=== PATIENT | female | born 1990 | race Caucasian/White ===

== ENCOUNTER → 2017-02-17 | Outpatient (CLI) | payer OTHER ==
[~2017-02-17] MED LIST: /DIVA50TA PO; ACET50TA PO; FOLI5CAP PO; IBUP80TA PO; LIVETAB PO; PRENTAB55 PO; TYLE325T5 PO
--- NOTE | 2017-02-17 17:28 | REP ---
Obstetric sonography: History: Supervision of for anatomy. Findings: Scanning through the gravid uterus demonstrates a viable single intrauterine gestation in a variable lie. motion is observed and heart rate is recorded at 147 beats per minute. An anterior grade 0 placenta is seen without evidence of previa or abruption. Amniotic fluid is subjectively normal. Closed cervical length viewed transabdominally measures 5.0 cm. No extrauterine abnormalities observed. Exam quality was inhibited by maternal body habitus. No anomaly is seen. cavum, face and profile, left and right ventricular outflow tract, and lower extremities are less than optimally seen due to position and maternal body habitus. The following additional anatomic structures are identified and felt to be sonographically unremarkable: cranium, choroid plexus, cerebellum and posterior fossa, lungs, four-chamber heart, diaphragm, left-sided stomach, abdominal wall cord insertion, three-vessel umbilical cord, kidneys and bladder, spine, upper extremities. Biometry chart: BPD 4.3 cm = 18 weeks 6 days HC 15.8 cm = 18 weeks 5 days AC 12.4 cm = 18 weeks 0 days HL 2.7 cm = 18 weeks 4 days FL 2.6 cm = 18 weeks 0 days HC/AC ratio 1.28 (1.07-1.26). Cephalic index normal 0.75. Estimated weight 223 grams 0 pounds 7 ounces 39th percentile for 18 weeks 2 days. Impression: Viable single intrauterine gestation at 18 weeks 2 days by today's composite criteria. ARISTIDES by today's sonography July 19, 2017. anatomic survey incomplete regarding face, ventricular outflow tracts, and lower extremities. Signed by Blair Wang MD 02/17/2017 05:30 P
== END ==
LOC: M SMT 14:34
PROVIDERS: ATTEND Specialist
DX: Z34.82 Encounter for supervision of other normal pregnancy, second trimester (principal); Z3A.18 18 weeks gestation of pregnancy; Z36.89 Encounter for other specified antenatal screening

== ENCOUNTER → 2017-03-10 | Outpatient (CLI) | payer OTHER ==
--- NOTE | 2017-03-10 15:35 | REP ---
Obstetric sonography: History: Supervision of followup anatomy. face, ventricular outflow tract, lower extremities. Findings: Scanning through the gravid uterus demonstrates a viable single intrauterine gestation in a breech lie. motion is observed and heart rate is recorded at 153 beats per minute. An anterior grade 0 placenta is seen without evidence of previa or abruption. Amniotic fluid is subjectively normal. Closed cervical length is 5.1 cm. No extrauterine abnormalities observed. There has been appropriate interval growth. Exam quality was inhibited by maternal body habitus. Abdominal wall cord insertion is not well seen today but it was visualized previously . The following additional anatomic structures are identified and felt to be sonographically unremarkable: cranium, choroid plexus, cavum, cerebellum and posterior fossa, face and profile, lungs, four-chamber heart with left and right ventricular cardiac outflow tract views, diaphragm, left-sided stomach, three-vessel cord, kidneys, bladder, spine, upper and lower extremities. Biometry chart: BPD 5.5 cm = 22 weeks 4 days Head circumference 20.0 cm = 22 weeks 1 day Abdominal circumference 16.1 cm = 21 weeks 1 day Femur length 3.8 cm = 22 weeks 1 day Humeral length 3.5 cm = 22 weeks 0 days Cerebellar diameter 2.1 cm = 20 weeks 1 day HC/AC ratio normal 1.24. Estimated weight 444 grams, 0 pounds 15 ounces, 61st percentile for 21 weeks 2 days. Impression: Viable single intrauterine gestation at 21 weeks 5 days by today's composite criteria. Expected gestational age estimate based on prior sonography is 21 weeks 2 days. ARISTIDES by prior sonography July 19, 2017. anatomic survey is considered to be complete in conjunction with the prior study. There is appropriate interval growth. Signed by Blair Wang MD 03/10/2017 04:09 P
== END ==
LOC: M SMT 13:39
PROVIDERS: ATTEND Obstetrics & Gynecology
DX: Z34.82 Encounter for supervision of other normal pregnancy, second trimester (principal); Z3A.21 21 weeks gestation of pregnancy

== ENCOUNTER → 2017-06-21 | Outpatient (REF) | payer OTHER | LOC: M LAB REF 16:59 | DX: Z36.85 Encounter for antenatal screening for Streptococcus B (principal); Z3A.00 Weeks of gestation of pregnancy not specified | CPT/HCPCS: 87081 ==

== ENCOUNTER 2017-06-27 19:23 | Outpatient (CLI) | payer OTHER | END 2017-06-27 20:35 | disposition home or self-care (01) | LOC: M LDO 19:23 | DX: O47.03 False labor before 37 completed weeks of gestation, third trimester (principal); Z3A.36 36 weeks gestation of pregnancy ==

== ENCOUNTER → 2018-05-17 | Outpatient (CLI) | payer OTHER ==
[~2018-05-17] MED LIST changes: -ACET50TA PO; +COLA100C5 PO; +IBUP-1114 PO; +KEPP1TAB PO; +LEVE250T5 PO; +MAPA500T2 PO
--- NOTE | 2018-05-17 20:12 | REP ---
Clinical: Anatomical evaluation. Comparison: None . Findings: Examination demonstrates a single live intrauterine in cephalic presentation. motion is identified by technologist. Placenta is noted anterior fundal and grade grade zero without evidence for placenta previa or abruption. Amniotic fluid volume is normal. Cervix measures 4.6 cm in length and appears closed. No evidence for nuchal cord. Gestational age by LMP 21 weeks 5 days with ARISTIDES 09/22/2018 . Gestational age by current measurements 21 weeks 4 days with ARISTIDES 09/23/2018 . FHR equals 153 beats per minute. BPD 5.1 cm 21 weeks 2 days HC 19.2 cm 21 weeks 3 days AC 16.4 cm 21 weeks 3 days FL 3.7 cm 21 weeks 5-day HL 3.57 cm 21 weeks 6 days HC/AC ratio 1.17 Estimated weight 431 grams ( 40th percentile). Anatomical assessment demonstrates normal structures including cranium, choroid plexus, lungs, diaphragm, stomach, cord insertion/three-vessel cord, kidneys/bladder, spine, and extremities. Limited evaluation of the cavum, posterior fossa, facial features, four-chamber heart and cardiac ventricular outflow tracts. Impression: 1. Single live intrauterine in cephalic presentation demonstrating appropriate interval growth. 2. Anatomical limitations as noted above warrant reevaluation and follow-up. No gross abnormality identified. Electronically Signed by Oscar Wolff MD 05/17/2018 08:03 P
== END ==
LOC: M RAD 11:13
PROVIDERS: ATTEND Advanced Practice Midwife
DX: O99.212 Obesity complicating pregnancy, second trimester (principal); Z3A.21 21 weeks gestation of pregnancy

== ENCOUNTER → 2018-06-15 | Outpatient (CLI) | payer OTHER, SELFPAY ==
--- NOTE | 2018-06-15 18:19 | REP ---
Clinical: Anatomical evaluation. Comparison: 05/17/2018 . Findings: Examination demonstrates a single live intrauterine in transverse (head to maternal left) presentation. motion is identified by technologist. Placenta is noted anterior and grade grade zero without evidence for placenta previa or abruption. Amniotic fluid volume is normal. Cervix measures 4.1 cm in length and appears closed. Placental yan is identified. Nuchal cord cannot be excluded. Gestational age by LMP 25 weeks 6 days with ARISTIDES 09/22/2018 . Gestational age by current measurements 25 weeks 3 day with ARISTIDES 09/25/2018 . FHR equals 150 beats per minute. Estimated weight 849 grams ( 39th percentile). Anatomical assessment demonstrates normal structures including cranium, choroid plexus, cavum, cerebellum/posterior fossa, facial features, lungs, four-chamber heart/ventricular outflow tracts, diaphragm, stomach, cord insertion/three-vessel cord, kidneys/bladder, and extremities. Impression: 1. Single live intrauterine in transverse lie demonstrating appropriate interval growth. 2. Placental yan noted. 3. Nuchal cord cannot be excluded. 4. In conjunction with prior examination anatomical assessment is complete and normal. Electronically Signed by Oscar Wolff MD 06/15/2018 06:10 P
== END ==
LOC: M RAD 08:53
PROVIDERS: ATTEND Advanced Practice Midwife
DX: Z34.82 Encounter for supervision of other normal pregnancy, second trimester (principal)

== ENCOUNTER → 2018-08-25 | Outpatient (REF) | payer OTHER ==
[~2018-08-25] MED LIST changes: -/DIVA50TA PO; +DEPA1TAB3 PO
== END ==
LOC: M LAB REF 17:19
PROVIDERS: ATTEND Advanced Practice Midwife
DX: O99.213 Obesity complicating pregnancy, third trimester (principal); Z3A.00 Weeks of gestation of pregnancy not specified

== ENCOUNTER 2018-09-07 22:53 | Outpatient (CLI) | payer OTHER ==
[~2018-09-07] VITALS: Ht 157.5 cm; Wt 109.8 kg
[2018-09-07] MEDS ORDERED: DEPA1TAB3 PO (23:22)
[2018-09-07] MEDS ORDERED: FOLI1TAB11 PO (23:22)
--- NOTE | 2018-09-08 02:18 | NUR ---
L&D Triage Note: S: 28yo at 38w0d presents with c/o contractions. Reports active movement, no vaginal bleeding or LOF O: vss, AF cat 1 tracing with contraction 5-8mins gen: well appearing cx: 2/50/-3 A/P: 28yo at 38w0d with contractions, not active labor Reassuring status -home with Labor precautions and FKCs -f/u at next OB appt Lori Floyd MD
== END 2018-09-08 02:05 | disposition home or self-care (01) ==
LOC: M LDO 22:53
PROVIDERS: ATTEND Obstetrics & Gynecology
DX: O47.1 False labor at or after 37 completed weeks of gestation (principal); Z3A.38 38 weeks gestation of pregnancy

== ENCOUNTER 2018-09-10 14:41 | Inpatient (IN) | payer OTHER ==
[2018-09-10] VITALS (8 sets, daily range): BP systolic 120–140; BP diastolic 61–87
[~2018-09-10] VITALS: Ht 157.5 cm; Wt 109.0 kg
[~2018-09-10 14:41] MED LIST changes: +FOLI1TAB11 PO
[2018-09-10] MEDS ORDERED: OXYTOCIN 30 UNITS IN 0.9% NaCl 500ML IV BAG (J2590) As Ordered ONE (15:46)
[2018-09-10] MEDS ORDERED: LR 1,000 ML IV SCH (16:02)
[2018-09-10] MEDS ORDERED: DIBUCAINE 1% OINTMENT 30GM TOP PRN (16:15)
[2018-09-10] MEDS ORDERED: RHOGAM 300 MCG (1500 IU) INJ (J2790) IM SCH (16:15)
[2018-09-10] MEDS ORDERED: IBUPROFEN 600 MG TAB PO PRN (16:15)
[2018-09-10] MEDS ORDERED: MEASLES,MUMPS,RUBELLA VACCINE INJ (MMR-II) (90707) SC SCH (16:15)
[2018-09-10] MEDS ORDERED: OXYTOCIN DRIP 30 UNITS in APPROPRIATE DILUENT 1 EA IV SCH ×2 (16:15→17:30)
[2018-09-10] MEDS ORDERED: ACETAMINOPHEN 500 MG TAB PO PRN (16:15)
[2018-09-10] MEDS ORDERED: DOCUSATE SODIUM 100 MG CAP PO PRN (16:15)
[2018-09-10] MEDS ORDERED: ONDANSETRON 4MG/2ML VIAL (J2405) IV PRN (16:15)
[2018-09-10] MEDS ORDERED: IBUPROFEN 800 MG TAB PO PRN (16:15)
[2018-09-10] MEDS ORDERED: ACETAMINOPHEN TAB 650MG DOSE (2X325MG) PO PRN (16:15)
[2018-09-10] MEDS ORDERED: PROMETHAZINE 25 MG TAB PO PRN (16:15)
[2018-09-10 16:24] LABS: HEMATOCRIT 42.7 % (36.0-47.0); HEMOGLOBIN 14.5 g/dl (12.0-15.5); MEAN CORPUSCULAR HEMOGLOBIN 32.5 pg (27.0-33.0); MEAN CORPUSCULAR VOLUME 95.7 fl (80.0-96.0); PLATELET COUNT, AUTOMATED 172 10^3/uL (150-450); RED BLOOD COUNT 4.46 10^6/uL (4.00-5.40); WHITE BLOOD COUNT 7.7 10^3/uL (4.0-10.0)
--- NOTE | 2018-09-10 17:03 | NUR ---
L&D H&P HPI: 28 year old at 38+2 weeks estimated gestation. Expected date of confinement: 09/22/18. dated by LMP c/w 16 week US. Presents today with complaint of frequent, painful uterine contractions. Denies vaginal bleeding, loss of fluid, or uterine contractions. Reports regular movement. course uncomplicated. labs: Blood type A+, antibody screen negative, rubella immune, VDRL nonreactive , hepatitis B surface antigen negative, HIV negative, hepatitis C antibody negative, GC/CT negative, aneuploidy/maternal serum screening: AFP4, uninterpreted, 1 hour glucose challenge test: 122, GBS negative Radiology/OB US: no anomalies or placental abnormalities detected. 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 19 week demise Social history: no t/e/d Family history: none Objective Vitals: Normotensive, normal heart rate, afebrile Heart: Regular rate and rhythm. No murmurs, rubs or gallops. Lungs: Clear to auscultation bilaterally. No wheezes, crackles, rales or rhonchi. Abdomen: Uterine fundal height consistent with dates. No guarding or rebound tenderness. Extremities: No clubbing, cyanosis or edema. Normal deep tendon reflexes. Sterile vaginal exam: 10 cm, 100 %effacement, +1 station, cephalic, intact External monitoring: heart rate category 1 Tocodynamometer: contractions occurring every 2-4min Assessment/Plan 28 year old at 38+2 weeks gestation. Diagnosis: active labor at term/second stage of labor. Reassuring and maternal status. -Admit to labor and delivery with routine labs and orders -External monitoring and tocodynamometer -Pediatrics and anesthesia consultations as needed. Dr. Santy Obrien, DO, FACOG
--- NOTE | 2018-09-10 17:04 | NUR ---
Delivery note Spontaneous vaginal delivery Estimated gestational age at delivery: 38+2 weeks The active phase and second stage of labor progressed in normal fashion without epidural anesthesia. Patient did not receive Pitocin labor augmentation. FHR Cat I The head delivered left occiput anterior and restituted left occiput transverse. No nuchal cord was noted. The anterior shoulder delivered with gentle downward guidance and the remainder of the body delivered with ease. Cord clamping was delayed for approximately 1 minute after delivery. After doubly clamping the cord, I allowed the FOB to cut the cord. The was placed on the patient's chest for immediate bonding. [place] data: Apgars 9 and 9. weight 2760 grams 6 pounds, 1 ounces. Time of delivery: 1543. Sex: Female. The third stage of labor was actively managed with a bolus of IV Pitocin (30 units in 500 mL of normal saline). The placenta delivered completely intact with no missing cotyledons at 1550. A three-vessel cord with a central insertion was noted. After delivery of the placenta, the uterine fundus was approximately 2 cm below the umbilicus and firm. IV Pitocin was continued to maintain uterine tone. A normal, low level of uterine bleeding was noted. The cervix, vagina, vulva and perineum were inspected for lacerations. No laceration was noted. Excellent hemostasis was noted. Estimated blood loss: 300ml. All sponges, needles, and instruments were accounted for per [facility] department protocol. Santy Obrien D.O., F.[email or web address].
[2018-09-10] MEDS: DIVALPROEX 500 MG TAB PO SCH (21:30)
[2018-09-11 05:48] VITALS: BP 121/58
--- NOTE | 2018-09-11 07:00 | NUR ---
PPD#1 s/p precipitous S: Pain well controlled, voiding spontaneously, tolerating regular diet, ambulating without difficulty, lochia decreasing/minimal. Breast feeding. Denies GRAVES, visual changes, RUQ pain, sob, cp. O: Normotensive, normal HR, afebrile Abd: soft,nt,nd, fundus appropriately tender Ext: no calf tenderness A/P: PPD#1. Recovering appropriately; HDS/af/good pain control -Routine care -Anticipate d/c to home later today or tomorrow, depending on timing of Peds discharge Ricardo Obrien DO
[2018-09-11] MEDS ORDERED: PRENATAL VITAMINS CHEWABLE TABLET PO SCH (09:00)
[2018-09-11] MEDS: DIVALPROEX 500 MG TAB PO SCH (09:59)
[2018-09-11] MEDS ORDERED: IBUP80TA PO (11:39)
== END 2018-09-11 17:35 | disposition home or self-care (01) | DRG 560 ==
LOC: M LDO 14:41 → M LDI 15:50 → M OBS 19:17
PROVIDERS: ADMIT Obstetrics & Gynecology; ATTEND Obstetrics & Gynecology
PROC: 10E0XZZ Delivery of Products of Conception, External Approach (ICD-10-PCS; principal; 2018-09-10)
DX: O80 Encounter for full-term uncomplicated delivery (principal); Z37.0 Single live birth; Z3A.38 38 weeks gestation of pregnancy

== ENCOUNTER → 2019-03-28 | Outpatient (REF) | payer OTHER ==
[2019-03-28 14:55] LABS: CHLAMYDIA DNA AMPLIFICATION NEGATIVE (NEGATIVE); GC DNA AMPLIFICATION NEGATIVE (NEGATIVE)
== END ==
LOC: M SFHCWAGY 12:42
PROVIDERS: ATTEND Obstetrics & Gynecology
DX: Z12.4 Encounter for screening for malignant neoplasm of cervix (principal)

== ENCOUNTER → 2020-06-23 | Outpatient (REF) | payer OTHER | LOC: M PLALAB 13:34 | PROVIDERS: ATTEND Obstetrics & Gynecology | DX: Z3A.10 10 weeks gestation of pregnancy (principal) ==

== ENCOUNTER 2020-07-21 18:01 | Emergency (ER) | payer OTHER ==
[~2020-07-21] VITALS: Ht 157.5 cm; Wt 105.6 kg
[2020-07-21 19:10] LABS: APPEARANCE, URINE CLEAR (CLEAR); BACTERIA, URINE AUTO 2+ (NEGATIVE); BILIRUBIN, URINE AUTO NEGATIVE (NEGATIVE); BLOOD, URINE BLOOD 2+ (NEGATIVE); COLOR, URINE YELLOW (YELLOW); GLUCOSE, URINE (UA) AUTO 1+ mg/dL (NEGATIVE); KETONE, URINE AUTO 1+ mg/dL (NEGATIVE); LEUKOCYTE ESTERASE, URINE AUTO 1+ (NEGATIVE); NITRITE, URINE AUTO NEGATIVE (NEGATIVE); PROTEIN, URINE AUTO NEGATIVE (NEGATIVE); RBC, URINE AUTO 3 /HPF (0-3); SPECIFIC GRAVITY URINE AUTO 1.009 (1.002-1.035); SQUAMOUS EPITHELIAL CELL UR AU 2 /HPF (0-6); WBC, URINE AUTO 2 /HPF (0-3)
[2020-07-21 19:13] LABS: BASO % 0.3 % (0.0-1.0); EOS % 0.1 % (0.0-3.0); HEMATOCRIT 37.5 % (36.0-47.0); HEMOGLOBIN 12.6 g/dl (12.0-15.5); LYMPH # 1.7 10^3/uL (1.5-5.0); LYMPH % 23.4 % (24.0-44.0); MEAN CORPUSCULAR HEMOGLOBIN 31.3 pg (27.0-33.0); MEAN CORPUSCULAR HGB CONC 33.6 g/dl (32.0-36.5); MEAN CORPUSCULAR VOLUME 93.1 fl (80.0-96.0); MONO # 0.5 10^3/uL (0.0-0.8); MONO % 7.3 % (2.0-8.0); NEUTROPHILS % 68.8 % (36.0-66.0); PLATELET COUNT, AUTOMATED 241 10^3/uL (150-450); RED BLOOD COUNT 4.03 10^6/uL (4.00-5.40); WHITE BLOOD COUNT 7.2 10^3/uL (4.0-10.0)
--- NOTE | 2020-07-21 19:15 | REP ---
INDICATION: VAGINAL BLEEDING. COMPARISON: None TECHNIQUE: Transabdominal FINDINGS: Multiple ultrasonographic images of the gravid uterus shows a single living intrauterine gestation in variable positions. Doppler interrogation of the heart is a heart rate of 143 beats per minute. The cervix measures 4.3 cm in length and is closed. The developing placenta is not imaged by the outpatient receptionist. BPD: 2.6 cm 14 weeks 4 days HC: 9.9 cm 14 weeks 4 days AC: 8.3 cm 14 weeks 5 days FL: 1.4 cm 14 weeks 0 days Estimated weight 97 g. IMPRESSION: Single living intrauterine gestation as described above with an estimated gestational age of 14 weeks 4 days via composite criteria and an estimated date of delivery of 01/15/2021 by today's exam. <Electronically signed by Melecio Crabtree > 07/21/201911
[2020-07-21] MEDS ORDERED: CEPH500T PO (22:41)
[2020-07-21 23:05] LABS: ALBUMIN 3.2 GM/DL (3.2-5.2); ALT/SGPT 19 U/L (12-78); BILIRUBIN,TOTAL 0.3 MG/DL (0.2-1.0); BLOOD UREA NITROGEN 6 MG/DL (7-18); CARBON DIOXIDE LEVEL 26 MEQ/L (21-32); CHLORIDE LEVEL 108 MEQ/L (98-107); CREATININE FOR GFR 0.36 MG/DL (0.55-1.30); GLOMERULAR FILTRATION RATE > 60.0 (>60); GLUCOSE, FASTING 98 MG/DL (70-100); HCG, SERUM QUANTITATIVE 30178 MIU/ML; POTASSIUM SERUM 4.1 MEQ/L (3.5-5.1); SODIUM LEVEL 140 MEQ/L (136-145); TOTAL PROTEIN 6.7 GM/DL (6.4-8.2)
[2020-07-21] MEDS ORDERED: CEPHALEXIN SUSP POWDER 250MG/5ML BTL 100ML PO ONE (23:20)
[2020-07-21 23:42] VITALS: BP 132/84
== END 2020-07-21 23:45 | disposition home or self-care (01) ==
LOC: M ED 18:01
DX: O26.852 Spotting complicating pregnancy, second trimester (principal); O23.42 Unspecified infection of urinary tract in pregnancy, second trimester; Z3A.14 14 weeks gestation of pregnancy; Z79.899 Other long term (current) drug therapy; Z88.2 Allergy status to sulfonamides; Z88.8 Allergy status to other drugs, medicaments and biological substances

== ENCOUNTER → 2020-08-26 | Outpatient (REF) | payer OTHER ==
[~2020-08-26] MED LIST changes: +CEPH500T PO
== END ==
LOC: M SFHCWAGY 12:42
PROVIDERS: ATTEND Advanced Practice Midwife
DX: O99.212 Obesity complicating pregnancy, second trimester (principal); Z3A.19 19 weeks gestation of pregnancy

== ENCOUNTER → 2020-08-26 | Outpatient (CLI) | payer OTHER ==
--- NOTE | 2020-08-26 19:44 | REP ---
INDICATION: ANATOMY/ARISTIDES 01/18/21. ARISTIDES January 18, 2021. COMPARISON: Comparison study July 21, 2020.. FINDINGS: Scanning through the gravid uterus demonstrates a viable single intrauterine gestation in cephalic lie. motion is observed and heart rate is recorded at 135 beats per minute. A posterior placenta is seen, grade 0, without evidence of placenta previa. Closed cervical length is measured at 4.9 cm transabdominally. No extrauterine abnormality is observed. Amniotic fluid is subjectively normal. Four-chamber heart, left and right outflow tract, and spine are less than optimally seen due to position. The following additional anatomic structures are identified felt to be unremarkable: cranium and intracranial contents, nuchal fold face and profile nose and lips, lungs, diaphragm, left-sided stomach, abdominal wall cord insertion, right and left kidney, urinary bladder, upper and lower extremities, three-vessel cord.. Biometry chart: BPD 4.4 cm, 19 weeks 2 days Head circumference 16.7 cm, 19 weeks 3 days Abdominal circumference 14.0 cm, 19 weeks 2 days Femur length 3.1 cm, 19 weeks 5 days Humeral length 3.0 cm, 19 weeks 6 days HC AC ratio normal 1.19 Cephalic index normal 0.72 Estimated weight 297 g, 0 lb 10 oz, 37th percentile for 19 weeks 5 days IMPRESSION: Viable single intrauterine gestation at 19 weeks 4 days by today's composite sonographic criteria. ARISTIDES by today's sonography January 16, 2021.. No complication identified. Expected gestational age estimate based on prior sonography 19 weeks 5 days ARISTIDES by prior sonography January 15, 2021. <Electronically signed by Zoltan Wang > 08/26/20 [id number]
== END ==
LOC: M WHC 08:39
PROVIDERS: ATTEND Advanced Practice Midwife
DX: Z34.82 Encounter for supervision of other normal pregnancy, second trimester (principal)

== ENCOUNTER → 2020-10-09 | Outpatient (CLI) | payer OTHER ==
[2020-10-09 15:49] LABS: HEMATOCRIT 39.2 % (36.0-47.0); HEMOGLOBIN 12.8 g/dl (12.0-15.5); MEAN CORPUSCULAR HEMOGLOBIN 31.4 pg (27.0-33.0); MEAN CORPUSCULAR HGB CONC 32.7 g/dl (32.0-36.5); MEAN CORPUSCULAR VOLUME 96.1 fl (80.0-96.0); PLATELET COUNT, AUTOMATED 219 10^3/uL (150-450); RED BLOOD COUNT 4.08 10^6/uL (4.00-5.40); WHITE BLOOD COUNT 6.5 10^3/uL (4.0-10.0)
== END ==
LOC: M PLALAB 12:35
PROVIDERS: ATTEND Obstetrics & Gynecology
DX: O99.212 Obesity complicating pregnancy, second trimester (principal)

== ENCOUNTER → 2020-10-09 | Outpatient (CLI) | payer OTHER ==
--- NOTE | 2020-10-09 14:59 | REP ---
INDICATION: F/U ANATOMY COMPARISON: 08/26/2020 TECHNIQUE: Transabdominal obstetrical ultrasound with color Doppler evaluation. FINDINGS: Examination demonstrates a single live intrauterine in cephalic presentation. motion is identified by technologist. Placenta is noted posterior and grade 1 without evidence for placenta previa or abruption. Amniotic fluid volume is normal. Cervix measures 6.4 cm in length and appears closed.. Selected gestational age: 26 weeks 0 days with ARISTIDES 01/15/2021. Gestational age by current measurements 26 weeks 0 days with ARISTIDES 01/15/2021. FHR equals 138 beats per minute. Estimated weight 844 grams (30thpercentile). Anatomical assessment demonstrates normal structures including cranium, choroid plexus, cavum, cerebellum/posterior fossa, facial features, lungs, four-chamber heart/ventricular outflow tracts, diaphragm, stomach, cord insertion/three-vessel cord, kidneys/bladder, spine, and extremities. IMPRESSION: Single live intrauterine in cephalic presentation demonstrating appropriate interval growth. In conjunction with prior examination anatomical assessment is complete and normal. <Electronically signed by Oscar Wolff > 10/09/20 [id number]
== END ==
LOC: M WHC 13:14
PROVIDERS: ATTEND Obstetrics & Gynecology
DX: Z36.9 Encounter for antenatal screening, unspecified (principal); Z3A.26 26 weeks gestation of pregnancy

== ENCOUNTER → 2020-11-26 | Outpatient (CLI) | payer OTHER | LOC: M WHC 10:59 | PROVIDERS: ATTEND Obstetrics & Gynecology | DX: O26.843 Uterine size-date discrepancy, third trimester (principal); Z3A.00 Weeks of gestation of pregnancy not specified; Z53.9 Procedure and treatment not carried out, unspecified reason ==

== ENCOUNTER → 2020-12-10 | Outpatient (CLI) | payer OTHER ==
--- NOTE | 2020-12-11 09:21 | REP ---
INDICATION: GROWTH COMPARISON: 10/09/2020 TECHNIQUE: Transabdominal obstetrical ultrasound with color Doppler evaluation. FINDINGS: Examination demonstrates a single live intrauterine in cephalic presentation. motion is identified by technologist. Placenta is noted posterior and grade 1 without evidence for placenta previa or abruption. Amniotic fluid volume is normal. Cervix measures 3.5 cm in length and appears closed.. Selected gestational age: 34 weeks 6 days with ARISTIDES 01/15/2021. Gestational age by current measurements 35 weeks 2 days with ARISTIDES 01/12/2021. FHR equals 172 beats per minute. BPD: 8.7 cm at 35 weeks 1 day HC: 32.5 cm at 36 weeks 6 days AC: 31.7 cm at 35 weeks 4 days FL: 6.8 cm at 34 weeks 5 days HL: 5.9 cm at 34 weeks 2 days HC/AC: 1.03 Estimated weight 2680 grams (65thpercentile). JEREMIAH: 26.3 cm (7.9-24.9) IMPRESSION: Single live intrauterine in cephalic presentation demonstrating appropriate estimated weight/growth. Amniotic fluid index is above normal range suggesting mild polyhydramnios. <Electronically signed by Oscar Wolff > 12/11/20 [id number]
== END ==
LOC: M WHC 10:40
PROVIDERS: ATTEND Obstetrics & Gynecology
DX: O26.843 Uterine size-date discrepancy, third trimester (principal); Z3A.34 34 weeks gestation of pregnancy

== ENCOUNTER → 2020-12-18 | Outpatient (REF) | payer OTHER ==
[2020-12-19 10:26] LABS: APPEARANCE, URINE CLOUDY (CLEAR); BACTERIA, URINE AUTO 1+ (NEGATIVE); BILIRUBIN, URINE AUTO NEGATIVE (NEGATIVE); BLOOD, URINE BLOOD NEGATIVE (NEGATIVE); CALCIUM OXALATE CRYSTALS SMALL; COLOR, URINE AMBER (YELLOW); GLUCOSE, URINE (UA) AUTO 2+ mg/dL (NEGATIVE); KETONE, URINE AUTO NEGATIVE (NEGATIVE); LEUKOCYTE ESTERASE, URINE AUTO TRACE (NEGATIVE); MUCUS, URINE SMALL (NEGATIVE); NITRITE, URINE AUTO NEGATIVE (NEGATIVE); PROTEIN, URINE AUTO NEGATIVE (NEGATIVE); RBC, URINE AUTO 2 /HPF (0-3); SPECIFIC GRAVITY URINE AUTO 1.019 (1.002-1.035); SQUAMOUS EPITHELIAL CELL UR AU 4 /HPF (0-6); WBC, URINE AUTO 3 /HPF (0-3)
== END ==
LOC: M SFHCWAGY 09:57
PROVIDERS: ATTEND Obstetrics & Gynecology
DX: R10.9 Unspecified abdominal pain (principal)

== ENCOUNTER → 2020-12-30 | Outpatient (REF) | payer OTHER | LOC: M SFHCWAGY 09:58 | PROVIDERS: ATTEND Obstetrics & Gynecology | DX: O99.213 Obesity complicating pregnancy, third trimester (principal) ==

== ENCOUNTER → 2021-04-15 | Outpatient (REF) | payer OTHER | LOC: M SFHCWAGY 18:28 | PROVIDERS: ATTEND Advanced Practice Midwife | DX: Z01.419 Encounter for gynecological examination (general) (routine) without abnormal findings (principal); Z12.4 Encounter for screening for malignant neoplasm of cervix ==

== ENCOUNTER → 2021-05-01 | Outpatient (CLI) | payer OTHER ==
[~2021-05-01] MED LIST changes: +FOLI1TAB11; +LEVE10003 PO; +PRENTAB6
== END ==
LOC: M LABSMTC 11:00
PROVIDERS: ATTEND Anesthesiology
DX: Z01.812 Encounter for preprocedural laboratory examination (principal); Z20.822 Contact with and (suspected) exposure to COVID-19

== ENCOUNTER 2021-05-06 06:39 | Day surgery (SDC) | payer OTHER ==
[~2021-05-06] VITALS: Ht 157.5 cm; Wt 106.6 kg
[~2021-05-06 06:39] MED LIST changes: +LR 1,000 ML IV ONE
[2021-05-06] MEDS ORDERED: BUPIVACAINE HCL 0.25% 30ML VIAL As Ordered ONE (08:37)
[2021-05-06] MEDS ORDERED: fentaNYL 250 MCG/5 ML INJECTION As Ordered ONE (08:38)
[2021-05-06] MEDS ORDERED: LIDOCAINE 2% 100MG/5ML SDV (FOR ANES.) As Ordered ONE (08:38)
[2021-05-06] MEDS ORDERED: propofoL 200 MG/20 ML VIAL As Ordered ONE ×2 (08:38→10:04)
[2021-05-06] MEDS ORDERED: ROCURONIUM BROMIDE 50 MG/5 ML VIAL As Ordered ONE (08:38)
[2021-05-06] MEDS ORDERED: dexameTHASONE 4 MG/ML 1ML VIAL (J1100 PER 1MG) As Ordered ONE (08:38)
[2021-05-06] MEDS ORDERED: ONDANSETRON 4MG/2ML VIAL As Ordered ONE (08:38)
[2021-05-06] MEDS ORDERED: MIDAZOLAM INJ 2MG/2ML VIAL (J2250 PER 1MG) As Ordered ONE (08:39)
[2021-05-06] MEDS ORDERED: ESMOLOL INJ 100MG/10ML VIAL As Ordered ONE (09:30)
[2021-05-06] MEDS ORDERED: SUGAMMADEX SODIUM 500 MG/5 ML VIAL (BRIDION) As Ordered ONE (09:42)
[2021-05-06] MEDS ORDERED: ACETAMINOPHEN 1000MG 100ML IV BTL (OFIRMEV) (J0131 PER 10MG) As Ordered ONE (09:42)
[2021-05-06] MEDS ORDERED: KETOROLAC 60MG 2ML VIAL As Ordered ONE (09:43)
[2021-05-06] MEDS ORDERED: HYDROmorphone HCL 2MG/ML 1ML VIAL As Ordered ONE (09:56)
[2021-05-06] MEDS ORDERED: oxyCODONE 5MG TAB PO PRN (10:35)
[2021-05-06] MEDS ORDERED: METOCLOPRAMIDE INJ 10MG/2ML VIAL (J2765 PER 1) IV PRN (10:35)
[2021-05-06] MEDS ORDERED: fentaNYL 100 MCG/2 ML INJECTION IV PRN (10:35)
[2021-05-06] MEDS ORDERED: LR 1,000 ML IV SCH (10:35)
[2021-05-06] MEDS ORDERED: ONDANSETRON 4MG/2ML VIAL IV PRN (10:35)
[2021-05-06 12:17] VITALS: BP 128/65
[2021-05-06] MEDS ORDERED: ACETAMINOPHEN 500 MG TAB PO SCH (16:00)
[2021-05-06] MEDS ORDERED: IBUPROFEN 600MG TAB PO SCH (16:00)
== END 2021-05-06 12:17 | disposition home or self-care (01) ==
LOC: M SDC 06:39
PROVIDERS: ATTEND Obstetrics & Gynecology
DX: Z30.2 Encounter for sterilization (principal); Z88.2 Allergy status to sulfonamides; Z88.1 Allergy status to other antibiotic agents
CPT/HCPCS: 58661; 81025; 88302; J0131; J1100; J1170; J1885; J2250; J2405; J3010

== ENCOUNTER 2021-05-28 12:44 | Emergency (ER) | payer OTHER ==
[~2021-05-28] VITALS: Ht 157.5 cm; Wt 109.8 kg
[~2021-05-28 12:44] MED LIST changes: -LR 1,000 ML IV ONE
[2021-05-28 12:45] VITALS: BP 137/73
[2021-05-28] MEDS ORDERED: RIZA10TA58 (12:59)
== END 2021-05-28 14:05 | disposition left against medical advice (07) ==
LOC: M ED 12:44
DX: Z53.21 Procedure and treatment not carried out due to patient leaving prior to being seen by health care provider (principal)

== ENCOUNTER → 2023-02-09 | Outpatient (REF) | payer OTHER ==
[~2023-02-09] MED LIST changes: +RIZA10TA58
== END ==
LOC: M PLALAB 12:12
PROVIDERS: ATTEND Advanced Practice Midwife
DX: Z12.4 Encounter for screening for malignant neoplasm of cervix (principal)

== ENCOUNTER → 2024-02-22 | Outpatient (CLI) | payer OTHER | LOC: M WHC 10:42 | PROVIDERS: ATTEND Advanced Practice Midwife | DX: Z12.31 Encounter for screening mammogram for malignant neoplasm of breast (principal); R92.323 Mammographic fibroglandular density, bilateral breasts; Z80.3 Family history of malignant neoplasm of breast ==

== ENCOUNTER 2024-06-01 12:58 | Day surgery (SDC) | payer OTHER ==
[~2024-06-01] VITALS: Ht 157.5 cm; Wt 94.3 kg
[~2024-06-01 12:58] MED LIST changes: -RIZA10TA58; +RIZA10TA58 PO
[2024-06-01] MEDS ORDERED: LR 1,000 ML IV SCH ×2 (13:45→17:00)
[2024-06-01] MEDS ORDERED: fentaNYL 100 MCG/2 ML INJECTION As Ordered ONE (14:04)
[2024-06-01] MEDS ORDERED: ONDANSETRON 4MG 2ML VIAL As Ordered ONE (14:04)
[2024-06-01] MEDS ORDERED: propofoL 200 MG/20 ML VIAL As Ordered ONE (14:04)
[2024-06-01] MEDS ORDERED: MIDAZOLAM INJ 2MG/2ML VIAL As Ordered ONE (14:04)
[2024-06-01] MEDS ORDERED: ROCURONIUM BROMIDE 50MG/5ML VIAL As Ordered ONE (14:04)
[2024-06-01] MEDS ORDERED: SUGAMMADEX SODIUM 500 MG/5 ML VIAL (BRIDION) As Ordered ONE (14:04)
[2024-06-01] MEDS ORDERED: KETOROLAC 60MG 2ML VIAL As Ordered ONE (14:04)
[2024-06-01] MEDS ORDERED: LIDOCAINE 2% 100MG/5ML SDV (FOR ANES.) As Ordered ONE (14:04)
[2024-06-01] MEDS ORDERED: dexmedeTOMIDine (4MCG/ML)200MCG/50ML BTL (PRECEDEX) As Ordered ONE (14:22)
[2024-06-01] MEDS ORDERED: ACETAMINOPHEN 1000MG/100ML IV BAG As Ordered ONE (14:58)
[2024-06-01] MEDS: INDOCYANINE GREEN 25MG VIAL (IC-GREEN) IV ONE (15:10)
[2024-06-01] MEDS: ceFAZolin SOD 2 GM in IV 1 EA IV ONE (15:31)
[2024-06-01] MEDS: HEPARIN SOD (PORCINE) 5000UNITS/ML 1ML VIAL/SYRINGE SQ ONE (15:31)
[2024-06-01] MEDS ORDERED: ONDANSETRON 4MG 2ML VIAL IV PRN (17:00)
[2024-06-01] MEDS ORDERED: HYDROMORPHONE HCL 0.5 MG/ 0.5 ML SYRINGE IV PRN (17:00)
[2024-06-01] MEDS ORDERED: fentaNYL 100 MCG/2 ML INJECTION IV PRN (17:00)
[2024-06-01] MEDS: oxyCODONE 5MG TAB PO PRN (17:09)
[2024-06-01 18:20] VITALS: BP 131/79; TEMP 97.8; O2SAT 97
== END 2024-06-01 18:50 | disposition home or self-care (01) ==
LOC: M SDC 12:58
PROVIDERS: ATTEND Surgery
DX: K80.20 Calculus of gallbladder without cholecystitis without obstruction (principal); G43.909 Migraine, unspecified, not intractable, without status migrainosus; Z79.899 Other long term (current) drug therapy; Z88.2 Allergy status to sulfonamides; Z88.8 Allergy status to other drugs, medicaments and biological substances
CPT/HCPCS: 47562; 88304; J0131; J0665; J0690; J1100; J1885; J2250; J2405; J3010; Q9968; S2900